=== PATIENT | male | born 1985 | race Hispanic/Latino ===

== ENCOUNTER 2018-08-02 15:55 | Inpatient (IN) | payer BC ==
--- NOTE | 2018-08-03 01:18 | CP.PCM.HP ---
History of Present Illness - History of Present Illness History of Present Illness: PMD: Dr Diego Moran Pleasure Craft Sailor: Dr Miki Varela Chief Complaint: Weakness to both lower extremities The patient was seen and examined in the Rehab Unit HPI: The hx is obtained from the patient, and after review of his medical records. He is a 32 years old male sent from [facility] to the [facility] for continued treatment and rehabilitation. He has hx of DM II, HTN, Paroxysmals of A Fib who was admitted to the [facility] on 07/28/18 with bilateral leg weakness and slurred speech. He was diagnosed with Central Pontine Myelinolysis. At present he refers improvement in the slurred speech but still weakness or instability at the lower extremities. PMH: HTN; DM II; LV thrombus; Paroxysmal of Atrial Fibrillation; Obesity; Acute Kidney Injury PSH: Left second finger fracture surgery SH: Heavy smoker; Occasional Alcohol; No illegal drug use; Lives alone; worked as a utility operator FH: Significant for Diabetes Mellitus Allergies: NKDA Medication: Reviewed Present on Admission - Present on Admission Any Indicators Present on Admission: No History of DVT/PE: No History of Uncontrolled Diabetes: No Urinary Catheter: No Decubitus Ulcer Present: No Review of Systems - Constitutional Constitutional: Weakness. absent: Anorexia, Chills, Fever, Frequent Falls, Headache, Lethargy - EENT Eyes: Requires Corrective Lenses. absent: Blurred Vision, Diplopia, Photophobia, Sees Flashes Ears: absent: Decreased Hearing, Ear Discharge, Tinnitus Nose/Mouth/Throat: absent: Epistaxis, Nasal Congestion, Nasal Discharge, Sinus Pain, Sinus Pressure - Cardiovascular Cardiovascular: absent: Chest Pain, Dyspnea, Edema, Orthopnea - Respiratory Respiratory: absent: Cough, Dyspnea, Stridor - Gastrointestinal Gastrointestinal: absent: Abdominal Pain, Constipation, Diarrhea, Nausea, Vomiting - Genitourinary Genitourinary: absent: Dysuria, Flank Pain, Hematuria, Pyuria, Urinary Frequency - Musculoskeletal Musculoskeletal: Muscle Weakness. absent: Arthralgias, Back Pain, Muscle Cramps - Integumentary Integumentary: absent: Pruritus, Rash, Skin Pain, Skin Ulcer, Sores, Striae, Swelling - Neurological Neurological: Abnormal Gait, Focal Weakness, Weakness. absent: Burning Sensations, Confusion, Dizziness, Numbness, Headaches, Vertigo - Psychiatric Psychiatric: Anxiety. absent: Confusion, Depression, Panic Attacks - Endocrine Endocrine: absent: Palpitations, Polydipsia, Polyphagia, Polyuria - Hematologic/Lymphatic Hematologic: absent: Easy Bleeding, Easy Bruising Past Patient History - Past Medical History & Family History Past Medical History?: Yes - Past Social History Smoking Status: Heavy Smoker > 10 Cigarettes Daily Chewing Tobacco Use: No Cigar Use: No Alcohol: None Drugs: Denies, Inhalants Home Situation {Lives}: Alone - CARDIAC Hx Atrial Fibrillation: Yes (Paroxysmal of A Fib) Hx Hypertension: Yes Other/Comment: LV Thrombus - PULMONARY Hx Respiratory Disorders: No - NEUROLOGICAL Hx Neurological Disorder: No - HEENT Hx Blind: No - RENAL Hx Chronic Kidney Disease: No Other/Comment: Acute kidney Injury - HEMATOLOGICAL/ONCOLOGICAL Hx Blood Disorders: No - INTEGUMENTARY Hx Dermatological Problems: No - MUSCULOSKELETAL/RHEUMATOLOGICAL Hx Musculoskeletal Disorders: No - GASTROINTESTINAL Hx Gastrointestinal Disorders: No - PSYCHIATRIC Hx Psychophysiologic Disorder: No - SURGICAL HISTORY Hx Surgeries: Yes Other/Comment: Left second finger Fx surgery - ANESTHESIA Hx Anesthesia: No Meds Allergies/Adverse Reactions: Allergies Allergy/AdvReac Type Severity Reaction Status Date / Time No Known Allergies Allergy Verified 08/02/18 23:57 Physical Exam - Constitutional Appears: No Acute Distress - Head Exam Head Exam: ATRAUMATIC, NORMAL INSPECTION, NORMOCEPHALIC - Eye Exam Eye Exam: EOMI, Normal appearance Pupil Exam: NORMAL ACCOMODATION, PERRL - ENT Exam ENT Exam: Mucous Membranes Moist, Normal Exam, Normal External Ear Exam - Neck Exam Neck exam: Positive for: Full Rom, Normal Inspection. Negative for: Lymphadenopathy, Tenderness - Respiratory Exam Respiratory Exam: Clear to Auscultation Bilateral. absent: Rales, Rhonchi, Wheezes - Cardiovascular Exam Cardiovascular Exam: REGULAR RHYTHM, RRR, +S1, +S2. absent: Gallop, JVD - GI/Abdominal Exam GI & Abdominal Exam: Normal Bowel Sounds, Soft. absent: Mass, Organomegaly, Tenderness - Rectal Exam Rectal Exam: Deferred - Extremities Exam Extremities exam: Positive for: full ROM, normal inspection. Negative for: calf tenderness, joint swelling, pedal edema - Back Exam Back exam: CVA tenderness (L). absent: CVA tenderness (R), NORMAL INSPECTION - Neurological Exam Additional comments: Awake alert, oriented, no facial droop, clear speech, Motor strength 5/5 at both upper extremity. Motor strength at the left lower extremity is 4/5. - Psychiatric Exam Psychiatric exam: Normal Affect, Normal Mood - Skin Skin Exam: Dry, Intact, Normal Color, Warm Assessment & Plan - Assessment and Plan (Free Text) Plan: 32 years old male sent from [facility] to the [facility] for continued treatment and rehabilitation. He has hx of DM II, HTN, Paroxysmals of A Fib who was admitted to the [facility] on 07/28/18 with bilateral leg weakness and slurred speech. He was diagnosed with Central Pontine Myelinolysis. #. Central Pontine Myelinolysis. - Consult Publishing Manager Dr Reyes - LYNNE - lipitor - OT/PT #. Diabetes Mellitus II - HbA1c was 12.6 at [facility] on 07/28/18 - Levemir - Lispro sliding scale according to accucheck #. BPH - Flomax #. DVT prophylaxis with SCD and Lovenox #. Code Status: Full - Date & Time Date: 08/03/18 Time: 01:18
[2018-08-03 07:03] LABS: BASO % 0.5 % (0.0-2.0); EOS # 0.2 K/uL (0.0-0.7); EOS % 2.3 % (0.0-4.0); HEMOGLOBIN 11.8 g/dL (12.0-18.0); LYMPH # 1.6 K/uL (1.0-4.3); LYMPH % 19.5 % (20.0-40.0); MEAN CELL VOLUME 86.6 fl (80.0-94.0); MEAN CORPUSCULAR HEMOGLOBIN 30.7 pg (27.0-31.0); MEAN CORPUSCULAR HGB CONC 35.5 g/dL (33.0-37.0); MEAN PLATELET VOLUME 7.8 fl (7.2-11.7); MONO # 0.6 K/uL (0.0-0.8); MONO % 7.8 % (0.0-10.0); NEUT # 5.6 K/uL (1.8-7.0); NEUT % 69.9 % (50.0-75.0); NRBC % 0.1 % (0.0-0.0); RBC 3.85 Mil/uL (4.40-5.90); RED CELL DISTRIBUTION WIDTH 13.5 % (11.5-14.5)
[2018-08-03] MEDS: Insulin Lispro (humaLOG) 100 Units/ml Inj SC SCH ×7 (07:09→21:34)
[2018-08-03 07:10] LABS: ALB/GLOB RATIO 1.4 (1.0-2.1); ALBUMIN 4.4 g/dL (3.5-5.0); ALT/SGPT 43 U/L (21-72); AST/SGOT 55 U/L (17-59); BLOOD UREA NITROGEN 12 mg/dl (9-20); CALCIUM 9.9 mg/dL (8.4-10.2); GFR NON-AFRICAN AMERICAN > 60
[2018-08-03 07:12] LABS: PROTHROMBIN TIME 11.8 Seconds (9.8-13.1)
[2018-08-03 07:14] LABS: PARTIAL THROMBOPLASTIN TIME 44.4 Seconds (25.6-37.1)
[2018-08-03 07:47] VITALS: BMI 35.2
[2018-08-03] MEDS: Insulin Detemir 100 Units/ml Inj SC SCH ×2 (08:34→21:35)
[2018-08-03] MEDS ORDERED: Pneumococcal 23-Valent Vaccine IM ONE (09:00)
[2018-08-03] MEDS: Enoxaparin 40 mg Syringe SC SCH (09:28)
--- NOTE | 2018-08-03 19:57 | PCM.OPOC ---
Physiatry Overall Plan of Care - Overall Plan of Care Estimated Length of Stay in Weeks: 3 Rehab Impairment: Mobility, Gait, Cognition, Speech, Balance, Coordination Etiologic Diagnosis: Other Rehab/Medical Prognosis: Fair - Anticipated Interventions Physical Therapy:: Yes Number of Hours: 1 Number of times per week: 5 Number of Week(s) Duration: 3 Occupational Therapy:: Yes Number of Hours: 1 Number of times per week: 5 Number of Week(s) Duration: 3 Speech Therapy:: Yes Number of Hours: 1 Number of times per week: 5 Number of Week(s) Duration: 3 Recreational Therapy:: Yes Number of Hours: 1 Number of times per week: 5 Number of Week(s) Duration: 3 - Therapy Goals Bed Mobility: Independent Ambulation: Contact Guard Functional Positional Changes:: Independent - Functional Status Prior to Admission: patient used to be independent Current Status: now needs assistance in all areas of adl,s transfers and gait - Functional Outcomes Functional Outcomes: fair - Discharge Plan Identification of Barriers to Discharge: Home Situation Discharge Destination: Home
--- NOTE | 2018-08-03 20:03 | PCM.CPAPS ---
History of Present Illness - History of Present Illness History of Present Illness: 32 year old male admitted to acute rehab from [facility] with diagnosis of central pontine myelinolysis with problems bilateral leg weakness . Patient also with problems of paroxysmal at fib., dm, htn, obesity and kidney injury Review of Systems - Constitutional Constitutional: Lethargy, Weakness - Musculoskeletal Musculoskeletal: Abnormal Gait, Muscle Weakness - Neurological Neurological: Abnormal Gait, Lack of Coordination, Weakness Past Patient History - Past Medical History & Family History Past Medical History?: Yes - Past Social History Smoking Status: Heavy Smoker > 10 Cigarettes Daily Chewing Tobacco Use: No Cigar Use: No Alcohol: None Drugs: Denies, Inhalants Home Situation {Lives}: Alone - CARDIAC Hx Hypertension: Yes - PULMONARY Hx Respiratory Disorders: No - NEUROLOGICAL Hx Neurological Disorder: No - HEENT Hx Blind: No - RENAL Hx Chronic Kidney Disease: No Other/Comment: Acute kidney Injury - ENDOCRINE/METABOLIC Hx Diabetes Mellitus Type 2: Yes - HEMATOLOGICAL/ONCOLOGICAL Hx Blood Disorders: No - INTEGUMENTARY Hx Dermatological Problems: No - MUSCULOSKELETAL/RHEUMATOLOGICAL Hx Musculoskeletal Disorders: No - GASTROINTESTINAL Hx Gastrointestinal Disorders: No - GENITOURINARY/GYNECOLOGICAL Hx Genitourinary Disorders: No - PSYCHIATRIC Hx Psychophysiologic Disorder: No - SURGICAL HISTORY Hx Surgeries: Yes Other/Comment: Left second finger Fx surgery - ANESTHESIA Hx Anesthesia: No Meds Allergies/Adverse Reactions: Allergies Allergy/AdvReac Type Severity Reaction Status Date / Time No Known Allergies Allergy Verified 08/02/18 23:57 - Medications Medications: Current Medications Aspirin (Aspirin Chewable) 81 mg PO DAILY [facility] Last Admin: 08/03/18 08:33 Dose: 81 mg Atorvastatin Calcium (Lipitor) 40 mg PO HS [facility] Enoxaparin Sodium (Lovenox) 40 mg SC DAILY [facility]; Protocol Last Admin: 08/03/18 09:28 Dose: 40 mg Insulin Detemir (Levemir) 18 units SC Q12 [facility] Last Admin: 08/03/18 08:34 Dose: 18 unit Insulin Human Lispro (Humalog) 0 units SC ACHS [facility]; Protocol Last Admin: 08/03/18 16:19 Dose: Not Given Insulin Human Lispro (Humalog) 10 units SC WM [facility] Last Admin: 08/03/18 17:37 Dose: 10 units Tamsulosin HCl (Flomax) 0.4 mg PO DAILY [facility] Last Admin: 08/03/18 08:33 Dose: 0.4 mg Physical Exam - Constitutional Appears: Well - Head Exam Head Exam: ATRAUMATIC, NORMAL INSPECTION, NORMOCEPHALIC - Eye Exam Eye Exam: EOMI, Normal appearance Pupil Exam: NORMAL ACCOMODATION, PERRL - ENT Exam ENT Exam: Mucous Membranes Moist, Normal Exam - Neck Exam Neck exam: Positive for: Normal Inspection - Respiratory Exam Respiratory Exam: Clear to Auscultation Bilateral, NORMAL BREATHING PATTERN - Cardiovascular Exam Cardiovascular Exam: REGULAR RHYTHM - GI/Abdominal Exam GI & Abdominal Exam: Normal Bowel Sounds - Rectal Exam Rectal Exam: NORMAL INSPECTION - Exam External exam: NORMAL EXTERNAL EXAM - Extremities Exam Extremities exam: Positive for: normal inspection Additional comments: patient with weakness of the extremities, problems with balance and coordination. - Back Exam Back exam: NORMAL INSPECTION - Neurological Exam Neurological exam: Alert - Psychiatric Exam Psychiatric exam: Normal Affect - Skin Skin Exam: Normal Color Results - Vital Signs Recent Vital Signs: Last Vital Signs Temp 97.7 F 08/03/18 07:57 Pulse 65 08/03/18 14:01 Resp 18 08/03/18 07:57 BP 140/72 08/03/18 14:01 Pulse Ox 100 08/03/18 14:01 - Labs Result Diagrams: 08/03/18 06:30 08/03/18 06:30 Labs: Laboratory Results - last 24 hr 08/03/18 08/03/18 08/03/18 06:30 06:30 06:30 WBC 8.0 RBC 3.85 L Hgb 11.8 L Hct 33.3 L MCV 86.6 MCH 30.7 MCHC 35.5 RDW 13.5 Plt Count 226 MPV 7.8 Neut % (Auto) 69.9 Lymph % (Auto) 19.5 L [place] % (Auto) 7.8 Eos % (Auto) 2.3 Baso % (Auto) 0.5 Neut # (Auto) 5.6 Lymph # (Auto) 1.6 [place] # (Auto) 0.6 Eos # (Auto) 0.2 Baso # (Auto) 0.0 PT 11.8 INR 1.0 APTT 44.4 H Sodium 140 Potassium 3.8 Chloride 104 Carbon Dioxide 26 Anion Gap 14 BUN 12 Creatinine 0.9 Est GFR ( Amer) > 60 Est GFR (Non-Af Amer) > 60 POC Glucose (mg/dL) Random Glucose 136 H Calcium 9.9 Total Bilirubin 1.6 H AST 55 ALT 43 Alkaline Phosphatase 95 Total Protein 7.5 Albumin 4.4 Globulin 3.1 Albumin/Globulin Ratio 1.4 08/03/18 08/03/18 08/03/18 07:06 11:00 16:06 WBC RBC Hgb Hct MCV MCH MCHC RDW Plt Count MPV Neut % (Auto) Lymph % (Auto) [place] % (Auto) Eos % (Auto) Baso % (Auto) Neut # (Auto) Lymph # (Auto) [place] # (Auto) Eos # (Auto) Baso # (Auto) PT INR APTT Sodium Potassium Chloride Carbon Dioxide Anion Gap BUN Creatinine Est GFR ( Amer) Est GFR (Non-Af Amer) POC Glucose (mg/dL) 129 H 182 H 127 H Random Glucose Calcium Total Bilirubin AST ALT Alkaline Phosphatase Total Protein Albumin Globulin Albumin/Globulin Ratio Assessment & Plan (1) Central pontine myelinolysis Assessment and Plan: also problems with At Fib, DM, HTN,obesity and kidney injury, admitted to acute rehab for physical, occupational, rec and speech therapy Status: Acute - Functional Status Prior to Admission: patient was independent Current Status: now needs assistance in all areas, of ADLS, transfers and gait Impairment Code: G37.2 central pontine myelinolysis
[2018-08-04] MEDS: Insulin Lispro (humaLOG) 100 Units/ml Inj SC SCH ×7 (06:49→21:04)
[2018-08-04] MEDS: Insulin Detemir 100 Units/ml Inj SC SCH ×2 (08:23→21:27)
[2018-08-04] MEDS: Enoxaparin 40 mg Syringe SC SCH (08:24)
[2018-08-04 13:14] LABS: BLOOD UREA NITROGEN 11 mg/dl (9-20); CALCIUM 9.4 mg/dL (8.4-10.2); GFR NON-AFRICAN AMERICAN > 60
[2018-08-04] MEDS: HCTZ/Losartan 12.5/50 Tab PO SCH (13:25)
--- NOTE | 2018-08-04 14:16 | CP.PCM.PN ---
Subjective - Date & Time of Evaluation Date of Evaluation: 08/04/18 Time of Evaluation: 13:00 - Subjective Subjective: patient with still with weakness of arms and legs weakness, less slurred speech Objective - Vital Signs/Intake and Output Vital Signs (last 24 hours): Temp Pulse Resp BP Pulse Ox 98.8 F 65 20 162/71 H 94 L 08/04/18 12:15 08/04/18 10:37 08/04/18 07:50 08/04/18 08:21 08/04/18 10:37 Intake and Output: 08/04/18 08/04/18 06:59 18:59 Intake Total 730 Balance 730 - Medications Medications: Current Medications Acetaminophen (Tylenol 325mg Tab) 650 mg PO Q4 PRN PRN Reason: pain scale 1-10. Last Admin: 08/04/18 12:15 Dose: 650 mg Amlodipine Besylate (Norvasc) 10 mg PO DAILY [facility] Aspirin (Aspirin Chewable) 81 mg PO DAILY [facility] Last Admin: 08/04/18 08:21 Dose: 81 mg Atorvastatin Calcium (Lipitor) 40 mg PO HS [facility] Last Admin: 08/03/18 21:33 Dose: 40 mg Enoxaparin Sodium (Lovenox) 40 mg SC DAILY [facility]; Protocol Last Admin: 08/04/18 08:24 Dose: 40 mg HCTZ/Losartan Potassium (Hyzaar 12.5 Mg-50 Mg) 1 tab PO DAILY [facility] Last Admin: 08/04/18 13:25 Dose: 1 tab Insulin Detemir (Levemir) 18 units SC Q12 [facility] Last Admin: 08/04/18 08:23 Dose: 18 unit Insulin Human Lispro (Humalog) 0 units SC ACHS [facility]; Protocol Last Admin: 08/04/18 11:57 Dose: Not Given Insulin Human Lispro (Humalog) 10 units SC WM [facility] Last Admin: 08/04/18 11:56 Dose: 10 units Tamsulosin HCl (Flomax) 0.4 mg PO DAILY [facility] Last Admin: 08/04/18 08:23 Dose: 0.4 mg - Labs Labs: 08/03/18 06:30 08/04/18 12:50 PT 11.8 Seconds (9.8-13.1) 08/03/18 06:30 INR 1.0 08/03/18 06:30 APTT 44.4 Seconds (25.6-37.1) H 08/03/18 06:30 - Constitutional Appears: Well - Head Exam Head Exam: ATRAUMATIC, NORMAL INSPECTION, NORMOCEPHALIC - Eye Exam Eye Exam: EOMI, Normal appearance, PERRL Pupil Exam: NORMAL ACCOMODATION - ENT Exam ENT Exam: Mucous Membranes Moist, Normal Exam - Neck Exam Neck Exam: Full ROM, Normal Inspection - Respiratory Exam Respiratory Exam: Clear to Ausculation Bilateral, NORMAL BREATHING PATTERN - Cardiovascular Exam Cardiovascular Exam: REGULAR RHYTHM - GI/Abdominal Exam GI & Abdominal Exam: Soft, Normal Bowel Sounds - Rectal Exam Rectal Exam: NORMAL INSPECTION - Exam External exam: NORMAL EXTERNAL EXAM - Extremities Exam Extremities Exam: Full ROM, Normal Capillary Refill, Normal Inspection - Back Exam Back Exam: NORMAL INSPECTION - Neurological Exam Neurological Exam: Alert Neuro motor strength exam: Left Upper Extremity: 3, Right Upper Extremity: 3, Left Lower Extremity: 3, Right Lower Extremity: 3 Additional comments: problems with coordination and balance - Psychiatric Exam Psychiatric exam: Normal Affect, Normal Mood - Skin Skin Exam: Dry, Intact Assessment and Plan (1) Central pontine myelinolysis Assessment & Plan: plan for physical, occupational, rec and speech therapy program. Monitor skin and pain Status: Acute
--- NOTE | 2018-08-04 14:37 | CP.PCM.PN ---
Subjective - Date & Time of Evaluation Date of Evaluation: 08/04/18 Time of Evaluation: 11:20 - Subjective Subjective: Patient seen and examined. Claimed he was feeling better and legs were getting stronger. Objective - Vital Signs/Intake and Output Vital Signs (last 24 hours): Temp Pulse Resp BP Pulse Ox 98.8 F 65 20 162/71 H 94 L 08/04/18 12:15 08/04/18 10:37 08/04/18 07:50 08/04/18 08:21 08/04/18 10:37 Intake and Output: 08/04/18 08/04/18 06:59 18:59 Intake Total 730 Balance 730 - Medications Medications: Current Medications Acetaminophen (Tylenol 325mg Tab) 650 mg PO Q4 PRN PRN Reason: pain scale 1-10. Last Admin: 08/04/18 12:15 Dose: 650 mg Amlodipine Besylate (Norvasc) 10 mg PO DAILY [facility] Aspirin (Aspirin Chewable) 81 mg PO DAILY [facility] Last Admin: 08/04/18 08:21 Dose: 81 mg Atorvastatin Calcium (Lipitor) 40 mg PO HS [facility] Last Admin: 08/03/18 21:33 Dose: 40 mg Enoxaparin Sodium (Lovenox) 40 mg SC DAILY [facility]; Protocol Last Admin: 08/04/18 08:24 Dose: 40 mg HCTZ/Losartan Potassium (Hyzaar 12.5 Mg-50 Mg) 1 tab PO DAILY [facility] Last Admin: 08/04/18 13:25 Dose: 1 tab Insulin Detemir (Levemir) 18 units SC Q12 [facility] Last Admin: 08/04/18 08:23 Dose: 18 unit Insulin Human Lispro (Humalog) 0 units SC ACHS [facility]; Protocol Last Admin: 08/04/18 11:57 Dose: Not Given Insulin Human Lispro (Humalog) 10 units SC WM [facility] Last Admin: 08/04/18 11:56 Dose: 10 units Tamsulosin HCl (Flomax) 0.4 mg PO DAILY [facility] Last Admin: 08/04/18 08:23 Dose: 0.4 mg - Labs Labs: 08/03/18 06:30 08/04/18 12:50 PT 11.8 Seconds (9.8-13.1) 08/03/18 06:30 INR 1.0 08/03/18 06:30 APTT 44.4 Seconds (25.6-37.1) H 08/03/18 06:30 - Constitutional Appears: No Acute Distress - Head Exam Head Exam: ATRAUMATIC - Eye Exam Eye Exam: absent: Scleral icterus - ENT Exam ENT Exam: Mucous Membranes Moist - Neck Exam Neck Exam: absent: Meningismus - Respiratory Exam Respiratory Exam: absent: Rales, Rhonchi, Wheezes, Respiratory Distress - Cardiovascular Exam Cardiovascular Exam: REGULAR RHYTHM, +S1, +S2 - GI/Abdominal Exam GI & Abdominal Exam: Soft. absent: Tenderness - Rectal Exam Rectal Exam: Deferred - Neurological Exam Neurological Exam: Alert, Oriented x3 - Psychiatric Exam Psychiatric exam: Normal Affect - Skin Skin Exam: Dry, Intact Assessment and Plan - Assessment and Plan (Free Text) Assessment: 32 yo male with history of HTN was transferred to Acute Rehab for therapy after he was admitted because of bilateral leg weakness and slurring of speech at [facility]. He was found to have Central Pontine Myelinolysis on CT scan of the head and also was found with new onset DM2 and Paroxysmal AFib. 1. Central Pontine Myelinolysis continue PT/OT Dr Reyes on physiatry consult continue ASA and statin and BP control 2. Diabetes Mellitus II HbA1c: 12.6 (07/28/18) BS relatively controlled continue Levemir 18 units SC q 12hrs and Lispro 10 units SC with meals 3. HTN BP slightly elevated Amlodipine 10mg PO daily Losartan/HCTZ 50/12.5 PO daily 4. BPH continue Flomax 5. DVT prophylaxis on Lovenox
--- NOTE | 2018-08-04 23:14 | PN ---
DATE: 08/04/2018 I was initially consulted on Mr. Sanjiv Elmore, but later on the consultation was canceled. I went to the floor and confirmed with the nurse who stated that the consult has been basically canceled, and I requested that my name be removed off the case. Reed Maldonado MD
[2018-08-05] MEDS: Insulin Lispro (humaLOG) 100 Units/ml Inj SC SCH ×7 (06:30→21:00)
[2018-08-05] MEDS: Enoxaparin 40 mg Syringe SC SCH (08:02)
[2018-08-05] MEDS: HCTZ/Losartan 12.5/50 Tab PO SCH (08:04)
[2018-08-05] MEDS: Insulin Detemir 100 Units/ml Inj SC SCH ×2 (08:39→21:39)
[2018-08-06] MEDS: Insulin Lispro (humaLOG) 100 Units/ml Inj SC SCH ×7 (06:30→21:05)
[2018-08-06 08:29] LABS: HEMOGLOBIN 11.1 g/dL (12.0-18.0); MEAN CELL VOLUME 84.7 fl (80.0-94.0); MEAN CORPUSCULAR HEMOGLOBIN 29.2 pg (27.0-31.0); MEAN CORPUSCULAR HGB CONC 34.5 g/dL (33.0-37.0); RBC 3.8 Mil/uL (4.40-5.90); RED CELL DISTRIBUTION WIDTH 14.4 % (11.5-14.5); WHITE BLOOD COUNT 10.5 K/uL (4.8-10.8)
[2018-08-06] MEDS: Enoxaparin 40 mg Syringe SC SCH (08:31)
[2018-08-06] MEDS: Insulin Detemir 100 Units/ml Inj SC SCH ×2 (08:32→21:25)
[2018-08-06] MEDS: HCTZ/Losartan 12.5/50 Tab PO SCH (08:33)
[2018-08-06 08:55] LABS: BLOOD UREA NITROGEN 20 mg/dl (9-20); CALCIUM 9.5 mg/dL (8.4-10.2); GFR NON-AFRICAN AMERICAN > 60
[2018-08-06] MEDS ORDERED: Sodium Chloride 0.9% 1,000 ML IV SCH (19:30)
[2018-08-07] MEDS: Insulin Lispro (humaLOG) 100 Units/ml Inj SC SCH ×7 (06:30→21:36)
[2018-08-07] MEDS: HCTZ/Losartan 12.5/50 Tab PO SCH (08:39)
[2018-08-07] MEDS: Insulin Detemir 100 Units/ml Inj SC SCH ×2 (08:40→21:35)
[2018-08-07] MEDS: Enoxaparin 40 mg Syringe SC SCH (08:41)
--- NOTE | 2018-08-07 09:59 | CP.PCM.PN ---
Subjective - Date & Time of Evaluation Date of Evaluation: 08/07/18 Time of Evaluation: 10:30 - Subjective Subjective: Patient seen and examined bedside . Feeling better . Participating with PT and improving. Hemodynamically stable, afebrile No acute issues overnight Objective - Vital Signs/Intake and Output Vital Signs (last 24 hours): Temp Pulse Resp BP Pulse Ox 97.9 F 60 21 120/55 L 99 08/07/18 08:02 08/07/18 08:38 08/07/18 08:02 08/07/18 08:38 08/07/18 08:02 Intake and Output: 08/07/18 08/07/18 06:59 18:59 Intake Total 120 Output Total 1000 Balance -880 - Medications Medications: Current Medications Acetaminophen (Tylenol 325mg Tab) 650 mg PO Q4 PRN PRN Reason: pain scale 1-10. Last Admin: 08/04/18 12:15 Dose: 650 mg Amlodipine Besylate (Norvasc) 10 mg PO DAILY [facility] Last Admin: 08/07/18 08:38 Dose: 10 mg Aspirin (Aspirin Chewable) 81 mg PO DAILY [facility] Last Admin: 08/07/18 08:39 Dose: 81 mg Atorvastatin Calcium (Lipitor) 40 mg PO HS [facility] Last Admin: 08/06/18 21:24 Dose: 40 mg Enoxaparin Sodium (Lovenox) 40 mg SC DAILY [facility]; Protocol Last Admin: 08/07/18 08:41 Dose: 40 mg HCTZ/Losartan Potassium (Hyzaar 12.5 Mg-50 Mg) 1 tab PO DAILY [facility] Last Admin: 08/07/18 08:39 Dose: 1 tab Insulin Detemir (Levemir) 18 units SC Q12 [facility] Last Admin: 08/07/18 08:40 Dose: 18 unit Insulin Human Lispro (Humalog) 0 units SC ACHS [facility]; Protocol Last Admin: 08/07/18 06:30 Dose: Not Given Insulin Human Lispro (Humalog) 10 units SC WM [facility] Last Admin: 08/07/18 08:41 Dose: 10 units Tamsulosin HCl (Flomax) 0.4 mg PO DAILY [facility] Last Admin: 08/07/18 08:38 Dose: 0.4 mg - Labs Labs: 08/06/18 06:49 08/06/18 06:49 PT 11.8 Seconds (9.8-13.1) 08/03/18 06:30 INR 1.0 08/03/18 06:30 APTT 44.4 Seconds (25.6-37.1) H 08/03/18 06:30 - Constitutional Appears: Non-toxic, No Acute Distress - Head Exam Head Exam: ATRAUMATIC, NORMAL INSPECTION, NORMOCEPHALIC - Eye Exam Eye Exam: EOMI, Normal appearance, PERRL Pupil Exam: NORMAL ACCOMODATION - ENT Exam ENT Exam: Mucous Membranes Moist, Normal Exam - Neck Exam Neck Exam: Full ROM, Normal Inspection - Respiratory Exam Respiratory Exam: Clear to Ausculation Bilateral, NORMAL BREATHING PATTERN. absent: Rales, Rhonchi, Wheezes - Cardiovascular Exam Cardiovascular Exam: REGULAR RHYTHM, RRR, +S1, +S2. absent: JVD - GI/Abdominal Exam GI & Abdominal Exam: Soft, Normal Bowel Sounds. absent: Distended, Guarding, Rebound - Rectal Exam Rectal Exam: Deferred - Extremities Exam Extremities Exam: Full ROM, Normal Capillary Refill, Normal Inspection. absent: Pedal Edema - Back Exam Back Exam: NORMAL INSPECTION - Neurological Exam Neurological Exam: Alert, Awake, CN II-XII Intact, Oriented x3 Additional comments: slurred speech - Psychiatric Exam Psychiatric exam: Normal Affect, Normal Mood - Skin Skin Exam: Dry, Intact, Normal Color, Warm Assessment and Plan - Assessment and Plan (Free Text) Assessment: 32 yo male with history of HTN was transferred to Acute Rehab for therapy after he was admitted because of bilateral leg weakness and slurring of speech at [facility]. He was found to have Central Pontine Myelinolysis on CT scan of the head and also was found with new onset DM2 and Paroxysmal AFib. At present feeling better, strength getting better. 1. Central Pontine Myelinolysis participating with PT/OT and improving Dr Reyes on physiatry consult continue ASA,statin and BP control 2. Diabetes Mellitus II HbA1c: 12.6 (07/28/18) BS relatively controlled continue Levemir 18 units SC q 12hrs and Lispro 10 units SC with meals 3. HTN controlled continue Amlodipine 10mg PO daily Losartan/HCTZ 50/12.5 PO daily 4. BPH continue Flomax 5. DVT prophylaxis on Lovenox
[2018-08-08] MEDS: Insulin Lispro (humaLOG) 100 Units/ml Inj SC SCH ×7 (08:19→21:35)
[2018-08-08] MEDS: Enoxaparin 40 mg Syringe SC SCH (08:21)
[2018-08-08] MEDS: HCTZ/Losartan 12.5/50 Tab PO SCH (08:21)
[2018-08-08] MEDS: Insulin Detemir 100 Units/ml Inj SC SCH ×2 (08:22→21:34)
--- NOTE | 2018-08-08 19:49 | CP.PCM.PN ---
Subjective - Date & Time of Evaluation Date of Evaluation: 08/08/18 Time of Evaluation: 14:00 - Subjective Subjective: patient feeling more encouraged claudio anxious Objective - Vital Signs/Intake and Output Vital Signs (last 24 hours): Temp Pulse Resp BP Pulse Ox 97 F L 66 21 121/61 100 08/08/18 08:25 08/08/18 08:25 08/08/18 08:25 08/08/18 08:25 08/08/18 08:25 - Medications Medications: Current Medications Acetaminophen (Tylenol 325mg Tab) 650 mg PO Q4 PRN PRN Reason: pain scale 1-10. Last Admin: 08/04/18 12:15 Dose: 650 mg Amlodipine Besylate (Norvasc) 10 mg PO DAILY [facility] Last Admin: 08/08/18 08:20 Dose: 10 mg Aspirin (Aspirin Chewable) 81 mg PO DAILY [facility] Last Admin: 08/08/18 08:16 Dose: 81 mg Atorvastatin Calcium (Lipitor) 40 mg PO HS [facility] Last Admin: 08/07/18 22:38 Dose: 40 mg Enoxaparin Sodium (Lovenox) 40 mg SC DAILY [facility]; Protocol Last Admin: 08/08/18 08:21 Dose: 40 mg HCTZ/Losartan Potassium (Hyzaar 12.5 Mg-50 Mg) 1 tab PO DAILY [facility] Last Admin: 08/08/18 08:21 Dose: 1 tab Insulin Detemir (Levemir) 18 units SC Q12 [facility] Last Admin: 08/08/18 08:22 Dose: 18 unit Insulin Human Lispro (Humalog) 0 units SC ACHS [facility]; Protocol Last Admin: 08/08/18 17:56 Dose: Not Given Insulin Human Lispro (Humalog) 10 units SC WM [facility] Last Admin: 08/08/18 17:57 Dose: 10 units Tamsulosin HCl (Flomax) 0.4 mg PO DAILY [facility] Last Admin: 08/08/18 08:17 Dose: 0.4 mg - Labs Labs: 08/06/18 06:49 08/06/18 06:49 PT 11.8 Seconds (9.8-13.1) 08/03/18 06:30 INR 1.0 08/03/18 06:30 APTT 44.4 Seconds (25.6-37.1) H 08/03/18 06:30 - Constitutional Appears: Well - Head Exam Head Exam: ATRAUMATIC, NORMAL INSPECTION, NORMOCEPHALIC - Eye Exam Eye Exam: EOMI, Normal appearance, PERRL Pupil Exam: NORMAL ACCOMODATION, PERRL - ENT Exam ENT Exam: Mucous Membranes Moist, Normal Exam - Neck Exam Neck Exam: Full ROM - Respiratory Exam Respiratory Exam: Clear to Ausculation Bilateral, NORMAL BREATHING PATTERN - Cardiovascular Exam Cardiovascular Exam: REGULAR RHYTHM - GI/Abdominal Exam GI & Abdominal Exam: Soft, Normal Bowel Sounds - Rectal Exam Rectal Exam: NORMAL INSPECTION - Exam External exam: NORMAL EXTERNAL EXAM - Extremities Exam Extremities Exam: Full ROM, Normal Capillary Refill, Normal Inspection - Back Exam Back Exam: NORMAL INSPECTION - Neurological Exam Neurological Exam: Alert, Awake Neuro motor strength exam: Left Upper Extremity: 3, Right Upper Extremity: 3, Left Lower Extremity: 3, Right Lower Extremity: 3 - Psychiatric Exam Psychiatric exam: Normal Mood - Skin Skin Exam: Normal Color Assessment and Plan (1) Central pontine myelinolysis Assessment & Plan: plan for team conference tomorrow, monitor DM, to continue with physical, occupational, rec and speech therapy Status: Acute
--- NOTE | 2018-08-08 19:57 | CP.PCM.PN ---
Subjective - Date & Time of Evaluation Date of Evaluation: 08/06/18 Time of Evaluation: 12:00 - Subjective Subjective: no acute complaints at present Objective - Vital Signs/Intake and Output Vital Signs (last 24 hours): Temp Pulse Resp BP Pulse Ox 97 F L 66 21 121/61 100 08/08/18 08:25 08/08/18 08:25 08/08/18 08:25 08/08/18 08:25 08/08/18 08:25 - Medications Medications: Current Medications Acetaminophen (Tylenol 325mg Tab) 650 mg PO Q4 PRN PRN Reason: pain scale 1-10. Last Admin: 08/04/18 12:15 Dose: 650 mg Amlodipine Besylate (Norvasc) 10 mg PO DAILY [facility] Last Admin: 08/08/18 08:20 Dose: 10 mg Aspirin (Aspirin Chewable) 81 mg PO DAILY [facility] Last Admin: 08/08/18 08:16 Dose: 81 mg Atorvastatin Calcium (Lipitor) 40 mg PO HS [facility] Last Admin: 08/07/18 22:38 Dose: 40 mg Enoxaparin Sodium (Lovenox) 40 mg SC DAILY [facility]; Protocol Last Admin: 08/08/18 08:21 Dose: 40 mg HCTZ/Losartan Potassium (Hyzaar 12.5 Mg-50 Mg) 1 tab PO DAILY [facility] Last Admin: 08/08/18 08:21 Dose: 1 tab Insulin Detemir (Levemir) 18 units SC Q12 [facility] Last Admin: 08/08/18 08:22 Dose: 18 unit Insulin Human Lispro (Humalog) 0 units SC ACHS [facility]; Protocol Last Admin: 08/08/18 17:56 Dose: Not Given Insulin Human Lispro (Humalog) 10 units SC WM [facility] Last Admin: 08/08/18 17:57 Dose: 10 units Tamsulosin HCl (Flomax) 0.4 mg PO DAILY [facility] Last Admin: 08/08/18 08:17 Dose: 0.4 mg - Labs Labs: 08/06/18 06:49 08/06/18 06:49 PT 11.8 Seconds (9.8-13.1) 08/03/18 06:30 INR 1.0 08/03/18 06:30 APTT 44.4 Seconds (25.6-37.1) H 08/03/18 06:30 - Constitutional Appears: Well - Head Exam Head Exam: ATRAUMATIC, NORMAL INSPECTION, NORMOCEPHALIC - Eye Exam Eye Exam: EOMI, Normal appearance, PERRL Pupil Exam: NORMAL ACCOMODATION, PERRL - ENT Exam ENT Exam: Mucous Membranes Moist, Normal Exam - Neck Exam Neck Exam: Full ROM, Normal Inspection - Respiratory Exam Respiratory Exam: Clear to Ausculation Bilateral, NORMAL BREATHING PATTERN - Cardiovascular Exam Cardiovascular Exam: REGULAR RHYTHM - GI/Abdominal Exam GI & Abdominal Exam: Normal Bowel Sounds - Rectal Exam Rectal Exam: NORMAL INSPECTION - Exam External exam: NORMAL EXTERNAL EXAM - Extremities Exam Extremities Exam: Full ROM, Normal Inspection - Back Exam Back Exam: NORMAL INSPECTION - Neurological Exam Neurological Exam: Alert Neuro motor strength exam: Left Upper Extremity: 3, Right Upper Extremity: 3, Left Lower Extremity: 3, Right Lower Extremity: 3 - Psychiatric Exam Psychiatric exam: Normal Affect - Skin Skin Exam: Normal Color Assessment and Plan (1) Central pontine myelinolysis Assessment & Plan: to continue with present therapy program and moniot DM, HTN Status: Acute
[2018-08-09] MEDS: Insulin Lispro (humaLOG) 100 Units/ml Inj SC SCH ×7 (07:00→21:06)
[2018-08-09] MEDS: Enoxaparin 40 mg Syringe SC SCH (08:22)
[2018-08-09] MEDS: HCTZ/Losartan 12.5/50 Tab PO SCH (08:23)
[2018-08-09] MEDS: Insulin Detemir 100 Units/ml Inj SC SCH ×2 (08:23→21:12)
--- NOTE | 2018-08-09 12:19 | PCM.PSYTMC ---
Acute Rehab Team Conference - - Vital Signs: Vital Signs (Last 8 Hours): Vital Signs 08/09/18 08/09/18 08/09/18 08:22 08:29 09:00 Temperature 98.0 F 98 F Pulse Rate 87 65 65 Respiratory 21 20 Rate Blood Pressure 125/87 121/74 121/74 O2 Sat by Pulse 100 Oximetry Pain: 0 - Precautions: Precautions: Fall Prevention, Aspiration - Medications/Other Issues: Comment: NA - Consults: Comment: Dr. Roldan Flores - Skin: Incision Site: NA - Toileting: Toileting: Contact Guard - Bladder Management: Bladder Pattern: Normal Voiding Method: Toilet Bladder Management: Contact Guard Other Intervention:: Patient assisted with ambulation to go to the bathroom. - Transfers: Transfers: Contact Guard - ADL's: ADL's: Minimal Assistance - Pain Management: Other Intervention:: Acetaminophen 325 mg 2 tabs as needed. - Patient/Family Teaching: Other Intervention:: Safety, fall and aspiration precaution reinforced. Medication teaching is done. - Goals/Time Frame: Comment: Patient will be more independent with ADLs and will be able to know what medicationshe is taking. - Provider: Registered Nurse:: Felipa Ramesh Physical Therapy - Bed Mobility Bed Mobility: Modified Independent - Transfers Wheelchair to Mat: Supervision Sit to Stand: Supervision Comment: no AD - Ambulation Level of Assistance: Contact Guard Distance (ft.): 150 Assistive Devices: N/A Comment: needs cues for heel strike, foot flat, and toe off. needs cues for arm swing - Stair Negotiation Stairs: Level of Assistance: Minimal Assistance Handrails: Bilateral Comment: up and down 1 flight with 1 rail minimal assistance - Standing Balance Static Stand: Supervision Comment: no AD - Insight/Carryover Insight/Carryover: Good - Patient/Family Education Comment: need to slow down. reviewed plan of care - Assessment/Plan Assessment: Overall the patient has made progress over the past week. Encouraged him to slow down and work on the quality of his movements as he places himself at risk for falling. Recommend further therapy work on his gait, balance, and quality of his movements. - Goals Timeframe: 1 week Goals: 1 flight of steps with single rail and supervision. 500 feet with rolling walker with supervision. sit <> stand without an AD supervision. modified independence with all bed/mat mobility - Provider Physical Therapist:: Eulogio Franklin License Number:: [id number] Occupational Therapy - Arousal/Attention/Orientation Level of Consciousness: Awake, Alert Patient Orientation: Person, Place, Time, Appropriate to Age - ADL/IADL Self Feeding: Independent Grooming: Independent Bathing-Upper Ext: Independent Bathing-Lower Ext: Supervision Dressing-Upper Ext: Independent Dressing-Lower Ext: Supervision Homemaking: Contact Guard - Sitting Balance Static Sitting: Independent without upper extremity support Dynamic Sitting: Requires supervision - Transfers Wheelchair to Bed Transfers: Supervision Toilet Transfers: Supervision Tub Transfers: Supervision Comment: patient takes standing shower - Wheelchair Management Level of Assistance: Independent Distance (ft.): 150 - Upper Extremity Status Right Upper Extremity Comment: impaired gross motor/fm coordination Left Upper Extremity Comment: impaired gross motor/fm coordination - Pain Pain (assessed during therapy session): 0 - Insight/Carryover Insight/Carryover: Good - Patient/Family Education Comment: dme/ae education, role of OT, goals of therapy/therapy schedule, progress in therapyy, d/c planning, plan of care - Assessment/Plan Assessment: Patient has made significant gains in therapy in the past week thus far. Patient presents with impaired dynamic standing balance/unsteadiness on feet/lack of coordination (fine motor/gross motor) and impaired knowledge of adaptive/compensatory techniques .These aforementioned defecits impact pt's ability to complete adls, transfers, and iadls safely and effectively. patient's fm coordination/gross motor in UES has greatly improved as per completion of functional dressing tasks and as per standardized testing ( 9 hole peg test). patient able to complete standing shower with overall supervision. recommend d/c home with services post IP stay , recommend supervision with IADLs such as heavy cooking and cleaning - Goals Timeframe: 1 week - Provider Occupational Therapist:: Essence Freeman License Number: [id number] Speech Therapy - Consult Information Patient on Program: Yes Medical Diagnosis: Central Myelitis Treatment Diagnosis: Dysphagia. Dysarthria - Assessment Speech/Articulation Impairment: Moderate Dysphagia/Swallowing Impairment: Moderate Comment: Pharyngeal dysphagia - Plan Assessment: Pt currently presents with a severe oropharyngeal dysphagia as characterized by previous MBS. Pt is completing Vital Stim modality in tx and tolerating a regular/ honey thick liquid diet. A mild dysarthria present, impacting intelligibility at the complex conversation level. Plan: Continue Dysphagia Therapy, Continue Speech/Language Therapy Frequency: 3-5 times per week Duration: 1 week - Provider Therapist: Reyna Ramos License Number: [id number] Recreational Therapy - Participation Participation: Participates in Individual and/or Group Sessions - Attendance Attendance: 3-5 times per week - Activities Leisure Activities: Cards and Games - Socialization Level of Socialization: Initiates/interacts freely with care givers and peer - Diversional Time Diversional Time: watches television, enjoys playing games in recreation room - Assessment Assessment/Plan: Pt is agreeable to participate in 1:1 and group recreation therapy sessions throughout stay on unit. Pt participated in group task of bingo with peers as well as oriented to new tasks related to improving coordination and multi-task processing. Pt demonstrated improved mood state and arousal level since date of admission and has verbalized improvement in his mood state as well. Presently, pt reports blurriness s/p admission and wears eyeglasses to improve eyesight. Pt will continue to benefit from participating in recreation therapy sessions throughout stay on unit. Problems Currently Limiting Participation: impaired coordination, impaired processing, decrease leisure awareness level, blurred vision Goals and Time Frame: Pt will require 50% of verbal cues requiring supervision to complete tasks by date of discharge. - Provider Therapist: Tonya Harvey Nutrition - Current Diet Current Diet/Supplement/Feedings: Moderate consistent CHO. Heart healthy honey thick liquids - Appetite Percent Meal Consumed: 75-100% - Assessment/Goals/Time Frame Assessments/Goals/Time Frame: Pt at moderate nutritional risk. goals: 1. Pt to consume 75-100% of meals(met, continue). 2. Blood glucoses to be between 70- 180 mg/dl(partially met,continue). Follow-up due on 08/15/2018 - Provider Provider: Emma Almazan Case Management - Psychosocial Assessment Support Systems: Alena Larose ([facility]) - [phone] Psychological Interventions/Needs: Patient is AAOx3 and able to verbalize needs. Discharge Concerns: Patient lives in an apartment alone. Patient is still requiring contact guard assist. Patient/Family Meeting: CM met with patient and rehab team. Intervention/Goal/Outcome: 1. Goal: Intermittent supervision 2. Plan: home with VNS vs. outpatient PT/OT 3. DME needs 4. f/u appts 5. continued acute rehab auth 6. continued emotional support - Discharge Plan Discharge Plan: Home with services Home Services: [facility]? - Provider Provider: Liliya Reeder License Number: [id number] Rehabilitation Plan - Treatment Plan Treatment Plan: Physical Therapy, Occupational Therapy, Speech, Dietary, Patient/Family Education - Recommendation Recommendation: Physical Therapy, Occupational Therapy, Speech, Dietary - Discharge Plan Discharge to: Home (Dc 7)
--- NOTE | 2018-08-09 13:24 | CP.PCM.PN ---
Subjective - Date & Time of Evaluation Date of Evaluation: 08/09/18 Time of Evaluation: 11:00 - Subjective Subjective: no acute complaints Objective - Vital Signs/Intake and Output Vital Signs (last 24 hours): Temp Pulse Resp BP Pulse Ox 98 F 65 20 121/74 100 08/09/18 09:00 08/09/18 09:00 08/09/18 09:00 08/09/18 09:00 08/09/18 08:29 - Medications Medications: Current Medications Acetaminophen (Tylenol 325mg Tab) 650 mg PO Q4 PRN PRN Reason: pain scale 1-10. Last Admin: 08/04/18 12:15 Dose: 650 mg Amlodipine Besylate (Norvasc) 10 mg PO DAILY [facility] Last Admin: 08/09/18 08:22 Dose: 10 mg Aspirin (Aspirin Chewable) 81 mg PO DAILY [facility] Last Admin: 08/09/18 08:21 Dose: 81 mg Atorvastatin Calcium (Lipitor) 40 mg PO HS [facility] Last Admin: 08/08/18 21:32 Dose: 40 mg Enoxaparin Sodium (Lovenox) 40 mg SC DAILY [facility]; Protocol Last Admin: 08/09/18 08:22 Dose: 40 mg HCTZ/Losartan Potassium (Hyzaar 12.5 Mg-50 Mg) 1 tab PO DAILY [facility] Last Admin: 08/09/18 08:23 Dose: 1 tab Insulin Detemir (Levemir) 18 units SC Q12 [facility] Last Admin: 08/09/18 08:23 Dose: 18 unit Insulin Human Lispro (Humalog) 0 units SC ACHS [facility]; Protocol Last Admin: 08/09/18 12:44 Dose: 1 unit Insulin Human Lispro (Humalog) 10 units SC WM [facility] Last Admin: 08/09/18 12:45 Dose: 10 units Tamsulosin HCl (Flomax) 0.4 mg PO DAILY [facility] Last Admin: 08/09/18 08:22 Dose: 0.4 mg - Labs Labs: 08/06/18 06:49 08/06/18 06:49 PT 11.8 Seconds (9.8-13.1) 08/03/18 06:30 INR 1.0 08/03/18 06:30 APTT 44.4 Seconds (25.6-37.1) H 08/03/18 06:30 - Constitutional Appears: Well - Head Exam Head Exam: ATRAUMATIC, NORMAL INSPECTION, NORMOCEPHALIC - Eye Exam Eye Exam: EOMI, Normal appearance, PERRL Pupil Exam: NORMAL ACCOMODATION - ENT Exam ENT Exam: Mucous Membranes Moist, Normal Exam - Neck Exam Neck Exam: Full ROM, Normal Inspection - Respiratory Exam Respiratory Exam: Clear to Ausculation Bilateral, NORMAL BREATHING PATTERN - Cardiovascular Exam Cardiovascular Exam: REGULAR RHYTHM - GI/Abdominal Exam GI & Abdominal Exam: Soft, Normal Bowel Sounds - Rectal Exam Rectal Exam: NORMAL INSPECTION - Exam External exam: NORMAL EXTERNAL EXAM - Extremities Exam Extremities Exam: Full ROM, Normal Capillary Refill, Normal Inspection - Back Exam Back Exam: NORMAL INSPECTION - Neurological Exam Neurological Exam: Alert, Awake Neuro motor strength exam: Left Upper Extremity: 3, Right Upper Extremity: 3, Left Lower Extremity: 3, Right Lower Extremity: 3 - Psychiatric Exam Psychiatric exam: Normal Affect, Normal Mood - Skin Skin Exam: Dry, Intact Assessment and Plan (1) Central pontine myelinolysis Assessment & Plan: for discharge on august 15, discussed Dc planning with patinet and family continue with therapies Status: Acute
--- NOTE | 2018-08-09 15:38 | CP.PCM.PN ---
Subjective - Date & Time of Evaluation Date of Evaluation: 08/09/18 Time of Evaluation: 15:00 - Subjective Subjective: Patient seen and examined. Denied any complaint. Able to ambulate without limitation. Objective - Vital Signs/Intake and Output Vital Signs (last 24 hours): Temp Pulse Resp BP Pulse Ox 98 F 65 20 121/74 100 08/09/18 09:00 08/09/18 09:00 08/09/18 09:00 08/09/18 09:00 08/09/18 08:29 - Medications Medications: Current Medications Acetaminophen (Tylenol 325mg Tab) 650 mg PO Q4 PRN PRN Reason: pain scale 1-10. Last Admin: 08/04/18 12:15 Dose: 650 mg Amlodipine Besylate (Norvasc) 10 mg PO DAILY [facility] Last Admin: 08/09/18 08:22 Dose: 10 mg Aspirin (Aspirin Chewable) 81 mg PO DAILY [facility] Last Admin: 08/09/18 08:21 Dose: 81 mg Atorvastatin Calcium (Lipitor) 40 mg PO HS [facility] Last Admin: 08/08/18 21:32 Dose: 40 mg Enoxaparin Sodium (Lovenox) 40 mg SC DAILY [facility]; Protocol Last Admin: 08/09/18 08:22 Dose: 40 mg HCTZ/Losartan Potassium (Hyzaar 12.5 Mg-50 Mg) 1 tab PO DAILY [facility] Last Admin: 08/09/18 08:23 Dose: 1 tab Insulin Detemir (Levemir) 18 units SC Q12 [facility] Last Admin: 08/09/18 08:23 Dose: 18 unit Insulin Human Lispro (Humalog) 0 units SC ACHS [facility]; Protocol Last Admin: 08/09/18 12:44 Dose: 1 unit Insulin Human Lispro (Humalog) 10 units SC WM [facility] Last Admin: 08/09/18 12:45 Dose: 10 units Tamsulosin HCl (Flomax) 0.4 mg PO DAILY [facility] Last Admin: 08/09/18 08:22 Dose: 0.4 mg - Labs Labs: 08/06/18 06:49 08/06/18 06:49 PT 11.8 Seconds (9.8-13.1) 08/03/18 06:30 INR 1.0 08/03/18 06:30 APTT 44.4 Seconds (25.6-37.1) H 08/03/18 06:30 - Constitutional Appears: No Acute Distress - Head Exam Head Exam: ATRAUMATIC - Eye Exam Eye Exam: absent: Scleral icterus - ENT Exam ENT Exam: Mucous Membranes Moist - Neck Exam Neck Exam: absent: Meningismus - Respiratory Exam Respiratory Exam: absent: Rales, Rhonchi, Wheezes, Respiratory Distress - Cardiovascular Exam Cardiovascular Exam: REGULAR RHYTHM, +S1, +S2 - GI/Abdominal Exam GI & Abdominal Exam: Soft. absent: Tenderness - Rectal Exam Rectal Exam: Deferred - Neurological Exam Neurological Exam: Alert, Oriented x3 - Psychiatric Exam Psychiatric exam: Normal Affect - Skin Skin Exam: Dry, Intact Assessment and Plan - Assessment and Plan (Free Text) Assessment: 32 yo male with history of HTN was transferred to Acute Rehab for therapy after he was admitted because of bilateral leg weakness and slurring of speech at [facility]. He was found to have Central Pontine Myelinolysis on CT scan of the head and also was found with new onset DM2 and Paroxysmal AFib. 1. Central Pontine Myelinolysis continue PT/OT Dr Reyes on physiatry consult continue ASA and statin and BP control 2. Diabetes Mellitus II HbA1c: 12.6 (07/28/18) BS relatively controlled continue Levemir 18 units SC q 12hrs and Lispro 10 units SC with meals 3. HTN BP slightly elevated Amlodipine 10mg PO daily Losartan/HCTZ 50/12.5 PO daily 4. BPH continue Flomax 5. DVT prophylaxis on Lovenox
[2018-08-10] MEDS: Insulin Lispro (humaLOG) 100 Units/ml Inj SC SCH ×7 (06:30→21:13)
[2018-08-10 07:00] LABS: HEMOGLOBIN 11.3 g/dL (12.0-18.0); MEAN CELL VOLUME 83.5 fl (80.0-94.0); MEAN CORPUSCULAR HEMOGLOBIN 29.3 pg (27.0-31.0); MEAN CORPUSCULAR HGB CONC 35.2 g/dL (33.0-37.0); RBC 3.85 Mil/uL (4.40-5.90); RED CELL DISTRIBUTION WIDTH 14.3 % (11.5-14.5)
[2018-08-10 07:10] LABS: BLOOD UREA NITROGEN 19 mg/dl (9-20); CALCIUM 9.7 mg/dL (8.4-10.2); GFR NON-AFRICAN AMERICAN > 60
[2018-08-10] MEDS: HCTZ/Losartan 12.5/50 Tab PO SCH (08:17)
[2018-08-10] MEDS: Enoxaparin 40 mg Syringe SC SCH (08:19)
[2018-08-10] MEDS: Insulin Detemir 100 Units/ml Inj SC SCH ×2 (08:19→21:29)
[2018-08-11] MEDS: Insulin Lispro (humaLOG) 100 Units/ml Inj SC SCH ×7 (06:30→21:16)
[2018-08-11] MEDS: Enoxaparin 40 mg Syringe SC SCH (09:03)
[2018-08-11] MEDS: HCTZ/Losartan 12.5/50 Tab PO SCH (09:03)
[2018-08-11] MEDS: Insulin Detemir 100 Units/ml Inj SC SCH ×2 (09:04→21:50)
[2018-08-11] MEDS ORDERED: Barium Sulfate Susp 0.1% w/v, 0.1% w/w 450 mL Bottle PO ONE (09:16)
--- NOTE | 2018-08-11 13:42 | CP.PCM.PN ---
Subjective - Date & Time of Evaluation Date of Evaluation: 08/11/18 Time of Evaluation: 20:00 - Subjective Subjective: Patient seen and examined. Admitted feeling much better. No complaint. Objective - Vital Signs/Intake and Output Vital Signs (last 24 hours): Temp Pulse Resp BP Pulse Ox 98.2 F 70 20 109/60 100 08/11/18 07:34 08/11/18 09:02 08/11/18 07:34 08/11/18 09:02 08/11/18 07:34 - Medications Medications: Current Medications Acetaminophen (Tylenol 325mg Tab) 650 mg PO Q4 PRN PRN Reason: pain scale 1-10. Last Admin: 08/04/18 12:15 Dose: 650 mg Amlodipine Besylate (Norvasc) 10 mg PO DAILY [facility] Last Admin: 08/11/18 09:02 Dose: 10 mg Aspirin (Aspirin Chewable) 81 mg PO DAILY [facility] Last Admin: 08/11/18 09:03 Dose: 81 mg Atorvastatin Calcium (Lipitor) 40 mg PO HS [facility] Last Admin: 08/10/18 21:28 Dose: 40 mg Enoxaparin Sodium (Lovenox) 40 mg SC DAILY [facility]; Protocol Last Admin: 08/11/18 09:03 Dose: 40 mg HCTZ/Losartan Potassium (Hyzaar 12.5 Mg-50 Mg) 1 tab PO DAILY [facility] Last Admin: 08/11/18 09:03 Dose: 1 tab Insulin Detemir (Levemir) 18 units SC Q12 [facility] Last Admin: 08/11/18 09:04 Dose: 18 unit Insulin Human Lispro (Humalog) 0 units SC ACHS [facility]; Protocol Last Admin: 08/11/18 12:36 Dose: 1 unit Insulin Human Lispro (Humalog) 10 units SC WM [facility] Last Admin: 08/11/18 12:35 Dose: 10 units Tamsulosin HCl (Flomax) 0.4 mg PO DAILY [facility] Last Admin: 08/11/18 09:03 Dose: 0.4 mg - Labs Labs: 08/10/18 05:25 08/10/18 05:25 PT 11.8 Seconds (9.8-13.1) 08/03/18 06:30 INR 1.0 08/03/18 06:30 APTT 44.4 Seconds (25.6-37.1) H 08/03/18 06:30 - Constitutional Appears: No Acute Distress - Head Exam Head Exam: ATRAUMATIC - Eye Exam Eye Exam: absent: Scleral icterus - ENT Exam ENT Exam: absent: Mucous Membranes Moist - Neck Exam Neck Exam: absent: Meningismus - Respiratory Exam Respiratory Exam: absent: Rales, Rhonchi, Wheezes, Respiratory Distress - Cardiovascular Exam Cardiovascular Exam: REGULAR RHYTHM, +S1, +S2 - GI/Abdominal Exam GI & Abdominal Exam: Soft. absent: Tenderness - Rectal Exam Rectal Exam: Deferred - Neurological Exam Neurological Exam: Alert, Oriented x3 - Psychiatric Exam Psychiatric exam: Normal Affect - Skin Skin Exam: Dry, Intact Assessment and Plan - Assessment and Plan (Free Text) Assessment: 32 yo male with history of HTN was transferred to Acute Rehab for therapy after he was admitted because of bilateral leg weakness and slurring of speech [place] [facility] He was found to have Central Pontine Myelinolysis on CT scan of the head and also was found with new onset DM2 and Paroxysmal AFib. 1. Central Pontine Myelinolysis continue PT/OT Dr Reyes on physiatry consult continue ASA and statin 2. Diabetes Mellitus II HbA1c: 12.6 (07/28/18) BS relatively controlled continue Levemir 18 units SC q 12hrs and Lispro 10 units SC with meals 3. HTN BP controlled Amlodipine 10mg PO daily Losartan/HCTZ 50/12.5 PO daily 4. BPH continue Flomax 5. DVT prophylaxis on Lovenox
--- NOTE | 2018-08-11 13:48 | CP.PCM.PN ---
Subjective - Date & Time of Evaluation Date of Evaluation: 08/11/18 Time of Evaluation: 11:00 - Subjective Subjective: patient feeling better, more balance Objective - Vital Signs/Intake and Output Vital Signs (last 24 hours): Temp Pulse Resp BP Pulse Ox 98.2 F 70 20 109/60 100 08/11/18 07:34 08/11/18 09:02 08/11/18 07:34 08/11/18 09:02 08/11/18 07:34 - Medications Medications: Current Medications Acetaminophen (Tylenol 325mg Tab) 650 mg PO Q4 PRN PRN Reason: pain scale 1-10. Last Admin: 08/04/18 12:15 Dose: 650 mg Amlodipine Besylate (Norvasc) 10 mg PO DAILY [facility] Last Admin: 08/11/18 09:02 Dose: 10 mg Aspirin (Aspirin Chewable) 81 mg PO DAILY [facility] Last Admin: 08/11/18 09:03 Dose: 81 mg Atorvastatin Calcium (Lipitor) 40 mg PO HS [facility] Last Admin: 08/10/18 21:28 Dose: 40 mg Enoxaparin Sodium (Lovenox) 40 mg SC DAILY [facility]; Protocol Last Admin: 08/11/18 09:03 Dose: 40 mg HCTZ/Losartan Potassium (Hyzaar 12.5 Mg-50 Mg) 1 tab PO DAILY [facility] Last Admin: 08/11/18 09:03 Dose: 1 tab Insulin Detemir (Levemir) 18 units SC Q12 [facility] Last Admin: 08/11/18 09:04 Dose: 18 unit Insulin Human Lispro (Humalog) 0 units SC ACHS [facility]; Protocol Last Admin: 08/11/18 12:36 Dose: 1 unit Insulin Human Lispro (Humalog) 10 units SC WM [facility] Last Admin: 08/11/18 12:35 Dose: 10 units Tamsulosin HCl (Flomax) 0.4 mg PO DAILY [facility] Last Admin: 08/11/18 09:03 Dose: 0.4 mg - Labs Labs: 08/10/18 05:25 08/10/18 05:25 PT 11.8 Seconds (9.8-13.1) 08/03/18 06:30 INR 1.0 08/03/18 06:30 APTT 44.4 Seconds (25.6-37.1) H 08/03/18 06:30 - Constitutional Appears: Well - Head Exam Head Exam: ATRAUMATIC, NORMAL INSPECTION, NORMOCEPHALIC - Eye Exam Eye Exam: EOMI, Normal appearance, PERRL Pupil Exam: NORMAL ACCOMODATION, PERRL - ENT Exam ENT Exam: Mucous Membranes Moist, Normal Exam - Neck Exam Neck Exam: Full ROM, Normal Inspection - Respiratory Exam Respiratory Exam: Clear to Ausculation Bilateral, NORMAL BREATHING PATTERN - Cardiovascular Exam Cardiovascular Exam: REGULAR RHYTHM - GI/Abdominal Exam GI & Abdominal Exam: Soft, Normal Bowel Sounds - Rectal Exam Rectal Exam: NORMAL INSPECTION - Exam External exam: NORMAL EXTERNAL EXAM - Extremities Exam Extremities Exam: Full ROM, Normal Capillary Refill, Normal Inspection - Back Exam Back Exam: NORMAL INSPECTION - Neurological Exam Neurological Exam: Alert, Awake Neuro motor strength exam: Left Upper Extremity: 3, Right Upper Extremity: 3, Left Lower Extremity: 3, Right Lower Extremity: 3 - Psychiatric Exam Psychiatric exam: Normal Affect, Normal Mood - Skin Skin Exam: Dry, Intact Assessment and Plan (1) Central pontine myelinolysis Assessment & Plan: doing well in therapies, physical, occupational, rec and speech therapy, will need outpatient service after Dc Status: Acute
--- NOTE | 2018-08-11 15:57 | RAD ---
Date of service: 08/11/2018 PROCEDURE: Modified barium swallow study. HISTORY: as per MD COMPARISON: None available. TECHNIQUE: Under fluoroscopic guidance, barium meals of various consistency were administered to the patient by the speech pathologist. 70.4 sec of fluoro time was utilized with a cumulative radiation dose of 4.51 mGy. FINDINGS: There is a mild oral motor phase delay. Trace penetration through the vocal cords as well as aspiration occurred on repeated ingestion of thin barium through a straw. No additional aspiration with additional barium food mixtures up to solid food. IMPRESSION: Trace penetration aspiration occurred on thin liquid administration through a straw. Please refer to the detailed report and recommendations of the speech pathologist.
[2018-08-12] MEDS: Insulin Lispro (humaLOG) 100 Units/ml Inj SC SCH ×7 (06:37→21:26)
[2018-08-12] MEDS: Enoxaparin 40 mg Syringe SC SCH (08:21)
[2018-08-12] MEDS: Insulin Detemir 100 Units/ml Inj SC SCH ×2 (08:21→21:25)
[2018-08-12] MEDS: HCTZ/Losartan 12.5/50 Tab PO SCH (08:22)
--- NOTE | 2018-08-12 11:30 | CP.PCM.PN ---
Subjective - Date & Time of Evaluation Date of Evaluation: 08/12/18 Time of Evaluation: 09:45 - Subjective Subjective: no acute complaints at present Objective - Vital Signs/Intake and Output Vital Signs (last 24 hours): Temp Pulse Resp BP Pulse Ox 98.4 F 74 21 144/79 100 08/12/18 08:10 08/12/18 08:22 08/12/18 08:10 08/12/18 08:22 08/12/18 08:10 - Medications Medications: Current Medications Acetaminophen (Tylenol 325mg Tab) 650 mg PO Q4 PRN PRN Reason: pain scale 1-10. Last Admin: 08/04/18 12:15 Dose: 650 mg Amlodipine Besylate (Norvasc) 10 mg PO DAILY [facility] Last Admin: 08/12/18 08:22 Dose: 10 mg Aspirin (Aspirin Chewable) 81 mg PO DAILY [facility] Last Admin: 08/12/18 08:22 Dose: 81 mg Atorvastatin Calcium (Lipitor) 40 mg PO HS [facility] Last Admin: 08/11/18 21:09 Dose: 40 mg Enoxaparin Sodium (Lovenox) 40 mg SC DAILY [facility]; Protocol Last Admin: 08/12/18 08:21 Dose: 40 mg HCTZ/Losartan Potassium (Hyzaar 12.5 Mg-50 Mg) 1 tab PO DAILY [facility] Last Admin: 08/12/18 08:22 Dose: 1 tab Insulin Detemir (Levemir) 18 units SC Q12 [facility] Last Admin: 08/12/18 08:21 Dose: 18 unit Insulin Human Lispro (Humalog) 0 units SC ACHS [facility]; Protocol Last Admin: 08/12/18 06:37 Dose: Not Given Insulin Human Lispro (Humalog) 10 units SC WM [facility] Last Admin: 08/12/18 08:23 Dose: 10 units Tamsulosin HCl (Flomax) 0.4 mg PO DAILY [facility] Last Admin: 08/12/18 08:23 Dose: 0.4 mg - Labs Labs: 08/10/18 05:25 08/10/18 05:25 PT 11.8 Seconds (9.8-13.1) 08/03/18 06:30 INR 1.0 08/03/18 06:30 APTT 44.4 Seconds (25.6-37.1) H 08/03/18 06:30 - Constitutional Appears: Well - Head Exam Head Exam: ATRAUMATIC, NORMAL INSPECTION, NORMOCEPHALIC - Eye Exam Eye Exam: EOMI, Normal appearance, PERRL Pupil Exam: NORMAL ACCOMODATION - ENT Exam ENT Exam: Mucous Membranes Moist, Normal Exam - Neck Exam Neck Exam: Full ROM - Respiratory Exam Respiratory Exam: Clear to Ausculation Bilateral, NORMAL BREATHING PATTERN - Cardiovascular Exam Cardiovascular Exam: REGULAR RHYTHM - GI/Abdominal Exam GI & Abdominal Exam: Soft, Normal Bowel Sounds - Rectal Exam Rectal Exam: NORMAL INSPECTION - Exam External exam: NORMAL EXTERNAL EXAM - Extremities Exam Extremities Exam: Full ROM, Normal Capillary Refill - Back Exam Back Exam: NORMAL INSPECTION - Neurological Exam Neurological Exam: Alert, Awake Neuro motor strength exam: Left Upper Extremity: 3, Right Upper Extremity: 3, Left Lower Extremity: 3, Right Lower Extremity: 3 - Psychiatric Exam Psychiatric exam: Normal Affect, Normal Mood - Skin Skin Exam: Dry, Normal Color Assessment and Plan (1) Central pontine myelinolysis Assessment & Plan: plan to continue with strengthening, transfers, gait and balance training, plan for physical, occupational , rec and speech therapy Status: Acute
[2018-08-13] MEDS: Insulin Lispro (humaLOG) 100 Units/ml Inj SC SCH ×7 (07:00→21:10)
[2018-08-13 08:08] LABS: HEMOGLOBIN 11.3 g/dL (12.0-18.0); MEAN CELL VOLUME 83.9 fl (80.0-94.0); MEAN CORPUSCULAR HEMOGLOBIN 28.7 pg (27.0-31.0); MEAN CORPUSCULAR HGB CONC 34.2 g/dL (33.0-37.0); RBC 3.94 Mil/uL (4.40-5.90); RED CELL DISTRIBUTION WIDTH 14.7 % (11.5-14.5); WHITE BLOOD COUNT 9.2 K/uL (4.8-10.8)
[2018-08-13 08:22] LABS: BLOOD UREA NITROGEN 21 mg/dl (9-20); CALCIUM 10.1 mg/dL (8.4-10.2); GFR NON-AFRICAN AMERICAN > 60
[2018-08-13] MEDS: Enoxaparin 40 mg Syringe SC SCH (08:36)
[2018-08-13] MEDS: Insulin Detemir 100 Units/ml Inj SC SCH ×2 (08:36→21:10)
[2018-08-13] MEDS: HCTZ/Losartan 12.5/50 Tab PO SCH (08:37)
[2018-08-14] MEDS: Insulin Lispro (humaLOG) 100 Units/ml Inj SC SCH ×7 (06:58→21:32)
[2018-08-14] MEDS: Enoxaparin 40 mg Syringe SC SCH (08:29)
[2018-08-14] MEDS: HCTZ/Losartan 12.5/50 Tab PO SCH (08:29)
[2018-08-14] MEDS: Insulin Detemir 100 Units/ml Inj SC SCH ×2 (08:30→21:34)
--- NOTE | 2018-08-14 10:28 | CP.PCM.PN ---
<Tawanna Ojeda - Last Filed: 08/14/18 14:00> Subjective - Date & Time of Evaluation Date of Evaluation: 08/14/18 Time of Evaluation: 11:00 - Subjective Subjective: Patient seen and examined at bedside. Reports he tolerated physical therapy outside today, was able to practice getting in and out of a van. Denies chest pain, weakness, dizziness or headache. Tolerating PO Diet. Has normal urine and stool output. Objective - Vital Signs/Intake and Output Vital Signs (last 24 hours): Temp Pulse Resp BP Pulse Ox 98.2 F 69 19 118/64 100 08/14/18 07:32 08/14/18 08:30 08/14/18 07:32 08/14/18 08:30 08/14/18 07:32 - Medications Medications: Current Medications Acetaminophen (Tylenol 325mg Tab) 650 mg PO Q4 PRN PRN Reason: pain scale 1-10. Last Admin: 08/04/18 12:15 Dose: 650 mg Amlodipine Besylate (Norvasc) 10 mg PO DAILY [facility] Last Admin: 08/14/18 08:30 Dose: Not Given Aspirin (Aspirin Chewable) 81 mg PO DAILY [facility] Last Admin: 08/14/18 08:29 Dose: 81 mg Atorvastatin Calcium (Lipitor) 40 mg PO HS [facility] Last Admin: 08/13/18 21:10 Dose: 40 mg Enoxaparin Sodium (Lovenox) 40 mg SC DAILY [facility]; Protocol Last Admin: 08/14/18 08:29 Dose: 40 mg HCTZ/Losartan Potassium (Hyzaar 12.5 Mg-50 Mg) 1 tab PO DAILY [facility] Last Admin: 08/14/18 08:29 Dose: 1 tab Insulin Detemir (Levemir) 18 units SC Q12 [facility] Last Admin: 08/14/18 08:30 Dose: 18 unit Insulin Human Lispro (Humalog) 0 units SC ACHS [facility]; Protocol Last Admin: 08/14/18 06:58 Dose: Not Given Insulin Human Lispro (Humalog) 10 units SC WM [facility] Last Admin: 08/14/18 07:27 Dose: 10 units Tamsulosin HCl (Flomax) 0.4 mg PO DAILY [facility] Last Admin: 08/14/18 08:29 Dose: 0.4 mg - Labs Labs: 08/13/18 06:00 08/13/18 06:00 PT 11.8 Seconds (9.8-13.1) 08/03/18 06:30 INR 1.0 08/03/18 06:30 APTT 44.4 Seconds (25.6-37.1) H 08/03/18 06:30 - Constitutional Appears: No Acute Distress - Head Exam Head Exam: ATRAUMATIC - Eye Exam Eye Exam: EOMI - ENT Exam ENT Exam: Mucous Membranes Moist - Neck Exam Neck Exam: absent: Meningismus - Respiratory Exam Respiratory Exam: Clear to Ausculation Bilateral, NORMAL BREATHING PATTERN - Cardiovascular Exam Cardiovascular Exam: REGULAR RHYTHM, +S1, +S2 - GI/Abdominal Exam GI & Abdominal Exam: Soft, Normal Bowel Sounds - Neurological Exam Neurological Exam: Alert, Awake, Oriented x3 - Psychiatric Exam Psychiatric exam: Normal Affect, Normal Mood - Skin Skin Exam: Dry, Warm Assessment and Plan - Assessment and Plan (Free Text) Assessment: 33 yr old M with history of HTN was transferred to Acute Rehab for therapy after he was admitted because of bilateral leg weakness and slurring of speech at [facility]. He was found to have Central Pontine Myelinolysis on CT scan of the head and also was found with new onset DM2 and Paroxysmal AFib. Patient is stable and tolerating physical therapy well. 1. Central Pontine Myelinolysis -continue PT/OT -Dr Reyes on physiatry consult -continue aspirin 81mg PO QD, atorvastatin 40mg PO QHS 2. Diabetes Mellitus Tyoe 2 -acute, uncontrolled -HbA1c: 12.6 (07/28/18) -accuchecks ACHS -continue Levemir 18 units SC q 12hrs and Lispro 10 units SC with meals; humalog low dose coverage scale ACHS -consistent carbohydrate diet 3. HTN -BP controlled -Amlodipine 10mg PO daily -Losartan/HCTZ 50/12.5 mg PO daily 4. BPH -chronic, stable -continue Flomax 5. DVT prophylaxis -Lovenox 40 mg SC QD <Luana Grewal - Last Filed: 08/14/18 19:48> Objective - Vital Signs/Intake and Output Vital Signs (last 24 hours): Temp Pulse Resp BP Pulse Ox 98.2 F 69 19 118/64 100 08/14/18 07:32 08/14/18 08:30 08/14/18 07:32 08/14/18 08:30 08/14/18 07:32 - Medications Medications: Current Medications Acetaminophen (Tylenol 325mg Tab) 650 mg PO Q4 PRN PRN Reason: pain scale 1-10. Last Admin: 08/04/18 12:15 Dose: 650 mg Amlodipine Besylate (Norvasc) 10 mg PO DAILY [facility] Last Admin: 08/14/18 08:30 Dose: Not Given Aspirin (Aspirin Chewable) 81 mg PO DAILY [facility] Last Admin: 08/14/18 08:29 Dose: 81 mg Atorvastatin Calcium (Lipitor) 40 mg PO HS [facility] Last Admin: 08/13/18 21:10 Dose: 40 mg Enoxaparin Sodium (Lovenox) 40 mg SC DAILY [facility]; Protocol Last Admin: 08/14/18 08:29 Dose: 40 mg HCTZ/Losartan Potassium (Hyzaar 12.5 Mg-50 Mg) 1 tab PO DAILY [facility] Last Admin: 08/14/18 08:29 Dose: 1 tab Insulin Detemir (Levemir) 18 units SC Q12 [facility] Last Admin: 08/14/18 08:30 Dose: 18 unit Insulin Human Lispro (Humalog) 0 units SC ACHS [facility]; Protocol Last Admin: 08/14/18 16:52 Dose: Not Given Insulin Human Lispro (Humalog) 10 units SC WM [facility] Last Admin: 08/14/18 17:30 Dose: 10 units Tamsulosin HCl (Flomax) 0.4 mg PO DAILY [facility] Last Admin: 08/14/18 08:29 Dose: 0.4 mg - Labs Labs: 08/13/18 06:00 08/13/18 06:00 PT 11.8 Seconds (9.8-13.1) 08/03/18 06:30 INR 1.0 08/03/18 06:30 APTT 44.4 Seconds (25.6-37.1) H 08/03/18 06:30 Attending/Attestation - Attestation I have personally seen and examined this patient.: Yes I have fully participated in the care of the patient.: Yes I have reviewed all pertinent clinical information, including history, physical exam and plan: Yes Notes (Text): 08/14/18 19:48 Agree with findings and plan as above
[2018-08-15] MEDS: Insulin Lispro (humaLOG) 100 Units/ml Inj SC SCH ×4 (06:34→11:44)
[2018-08-15 08:21] VITALS: RESP 22; TEMP 98.1; O2SAT 100
[2018-08-15] MEDS: Enoxaparin 40 mg Syringe SC SCH (08:25)
[2018-08-15] MEDS: HCTZ/Losartan 12.5/50 Tab PO SCH (08:26)
[2018-08-15 08:29] VITALS: BP 128/79; PULSE 85
[2018-08-15] MEDS: Insulin Detemir 100 Units/ml Inj SC SCH (08:29)
--- NOTE | 2018-08-15 15:13 | CP.PCM.PN ---
Subjective - Date & Time of Evaluation Date of Evaluation: 08/14/18 Time of Evaluation: 15:00 - Subjective Subjective: no acute complaints Objective - Vital Signs/Intake and Output Vital Signs (last 24 hours): Temp Pulse Resp BP Pulse Ox 98.1 F 85 22 128/79 100 08/15/18 08:21 08/15/18 08:26 08/15/18 08:21 08/15/18 08:26 08/15/18 08:21 - Labs Labs: 08/13/18 06:00 08/13/18 06:00 PT 11.8 Seconds (9.8-13.1) 08/03/18 06:30 INR 1.0 08/03/18 06:30 APTT 44.4 Seconds (25.6-37.1) H 08/03/18 06:30 - Constitutional Appears: Well - Head Exam Head Exam: ATRAUMATIC, NORMAL INSPECTION, NORMOCEPHALIC - Eye Exam Eye Exam: EOMI, Normal appearance, PERRL Pupil Exam: NORMAL ACCOMODATION - ENT Exam ENT Exam: Mucous Membranes Moist, Normal Exam - Neck Exam Neck Exam: Full ROM, Normal Inspection - Respiratory Exam Respiratory Exam: Clear to Ausculation Bilateral, NORMAL BREATHING PATTERN - Cardiovascular Exam Cardiovascular Exam: REGULAR RHYTHM - GI/Abdominal Exam GI & Abdominal Exam: Soft, Normal Bowel Sounds - Rectal Exam Rectal Exam: NORMAL INSPECTION - Exam External exam: NORMAL EXTERNAL EXAM - Extremities Exam Extremities Exam: Full ROM, Normal Capillary Refill, Normal Inspection - Back Exam Back Exam: NORMAL INSPECTION - Neurological Exam Neurological Exam: Alert Neuro motor strength exam: Left Upper Extremity: 3, Right Upper Extremity: 3, Left Lower Extremity: 3, Right Lower Extremity: 3 - Psychiatric Exam Psychiatric exam: Normal Affect, Normal Mood Assessment and Plan (1) Central pontine myelinolysis Assessment & Plan: planing for discharge home with out [facility] follow up with PMD Status: Acute
== END 2018-08-15 13:52 | disposition home or self-care (01) | DRG 60 ==
LOC: H.ERHOLD 23:58
PROVIDERS: ADMIT Internal Medicine; ATTEND Internal Medicine
PROC: F07M6FZ Therapeutic Exercise Treatment of Musculoskeletal System - Whole Body using Assistive, Adaptive, Supportive or Protective Equipment (ICD-10-PCS; principal; 2018-08-02)
PROC: F08Z4FZ Home Management Treatment using Assistive, Adaptive, Supportive or Protective Equipment (ICD-10-PCS; 2018-08-02)
DX: G37.2 Central pontine myelinolysis (principal); I10 Essential (primary) hypertension; I48.0 Paroxysmal atrial fibrillation; N40.0 Benign prostatic hyperplasia without lower urinary tract symptoms; Z79.4 Long term (current) use of insulin; Z79.82 Long term (current) use of aspirin; Z79.899 Other long term (current) drug therapy; E66.9 Obesity, unspecified; R47.81 Slurred speech; R53.1 Weakness; E11.9 Type 2 diabetes mellitus without complications; F17.200 Nicotine dependence, unspecified, uncomplicated